=== PATIENT | male | born 1990 | race Caucasian/White ===

== ENCOUNTER 2019-09-26 12:51 | Outpatient (CLI) | payer OTHER ==
[2019-09-26 13:46] LABS: CLARITY,URINE CLEAR (Clear); COLOR,URINE YELLOW (Yellow); GLUCOSE, URINE NEGATIVE (Neg); KETONES,URINE NEGATIVE (Neg); LEUKOCYTE ESTERASE ,URINE NEGATIVE (Neg); NITRITES, URINE NEGATIVE (Neg); OCCULT BLOOD,URINE NEGATIVE (Neg); PROTEIN,URINE NEGATIVE (Neg); UROBILINOGEN,URINE 0.2 E.U/dL (0.2-1.0)
[2019-09-26 13:52] LABS: UA COLLECTION TYPE CLN CATCH MIDSTREAM
== END 2019-09-26 23:59 | disposition home or self-care (01) ==
LOC: LAB 12:51
PROVIDERS: ATTEND Family Medicine
DX: Z11.3 Encounter for screening for infections with a predominantly sexual mode of transmission (principal)
CPT/HCPCS: 36415; 81003; 87491

== ENCOUNTER 2019-11-14 12:35 | Outpatient (CLI) | payer OTHER ==
[2019-11-14 13:16] LABS: ALANINE AMINOTRANSFERASE 72 U/L (12-78); ALBUMIN 4.3 G/DL (3.4-5.0); ALKALINE PHOSPHATASE 116 IU/L (46-116); ANION GAP 8 (8-16); ASPARTATE AMINO TRANSFERASE 26 U/L (10-37); BILIRUBIN,TOTAL 0.4 MG/DL (0.1-1.0); BLOOD UREA NITROGEN 14 MG/DL (7-18); BUN/CREATININE RATIO 12.4 (5.4-32.0); CHLORIDE 103 MMOL/L (99-107); CREATININE 1.13 MG/DL (0.60-1.10); GLUCOSE 105 MG/DL (70-104); SODIUM 139 MMOL/L (135-145); TOTAL CARBON DIOXIDE 28.1 MMOL/L (24-32); TOTAL PROTEIN 8.8 G/DL (6.4-8.2); eGFR 77 ML/MIN
[2019-11-14 13:18] LABS: BASOPHILS # (AUTO) 0.1 X10'3 (0-0.2); BASOPHILS % (AUTO) 0.8 % (0-1); EOSINOPHILS # (AUTO) 0.2 X10'3 (0-0.9); EOSINOPHILS % (AUTO) 1.2 % (0-6); HEMATOCRIT 46.2 % (42.0-52.0); HEMOGLOBIN 15.6 g/dl (14.0-17.9); LYMPHOCYTES % (AUTO) 11.9 % (21-51); MEAN CORPUSCULAR HEMOGLOBIN 29.8 PG (27.0-31.0); MEAN CORPUSCULAR HGB CONC 33.8 g/dL (33.0-36.5); MEAN CORPUSCULAR VOLUME 88.2 FL (78-98); MEAN PLATELET VOLUME 8.3 FL (7.4-10.4); MONOCYTES % (AUTO) 6.3 % (2-12); NEUTROPHILS # (AUTO) 13.3 X10'3 (1.8-7.7); NEUTROPHILS % (AUTO) 79.8 % (42-75); PLATELET COUNT 410 X10'3 (140-440); RED BLOOD COUNT 5.24 X10'6 (4.70-6.10); RED CELL DISTRIBUTION WIDTH 13.2 % (11.5-14.5); WHITE BLOOD COUNT 16.6 X10'3 (4.5-11.0)
== END 2019-11-14 23:59 | disposition home or self-care (01) ==
LOC: LAB 12:35
PROVIDERS: ATTEND Family Medicine
DX: R19.7 Diarrhea, unspecified (principal)
CPT/HCPCS: 36415; 80053; 85025; 87045; 87046; 89055

== ENCOUNTER 2019-11-23 13:19 | Outpatient (CLI) | payer OTHER ==
[2019-11-23 13:37] LABS: EOSINOPHILS # (AUTO) 0.3 X10'3 (0-0.9); HEMOGLOBIN 14.1 g/dl (14.0-17.9); LYMPHOCYTES # (AUTO) 1.6 X10'3 (1.1-4.8); MEAN PLATELET VOLUME 7.8 FL (7.4-10.4); MONOCYTES # (AUTO) 0.7 X10'3 (0-0.9)
[2019-11-23 13:39] LABS: BASOPHILS # (AUTO) 0.1 X10'3 (0-0.2); BASOPHILS % (AUTO) 1.6 % (0-1); EOSINOPHILS % (AUTO) 3.4 % (0-6); HEMATOCRIT 40.6 % (42.0-52.0); LYMPHOCYTES % (AUTO) 21.4 % (21-51); MEAN CORPUSCULAR HEMOGLOBIN 30.1 PG (27.0-31.0); MEAN CORPUSCULAR HGB CONC 34.8 g/dL (33.0-36.5); MEAN CORPUSCULAR VOLUME 86.3 FL (78-98); MONOCYTES % (AUTO) 9.5 % (2-12); NEUTROPHILS # (AUTO) 4.8 X10'3 (1.8-7.7); NEUTROPHILS % (AUTO) 64.1 % (42-75); PLATELET COUNT 358 X10'3 (140-440); RED CELL DISTRIBUTION WIDTH 13.1 % (11.5-14.5); WHITE BLOOD COUNT 7.5 X10'3 (4.5-11.0)
[2019-11-23 13:53] LABS: ALANINE AMINOTRANSFERASE 51 U/L (12-78); ALBUMIN 3.7 G/DL (3.4-5.0); ALKALINE PHOSPHATASE 87 IU/L (46-116); ANION GAP 6 (8-16); ASPARTATE AMINO TRANSFERASE 27 U/L (10-37); BILIRUBIN,TOTAL 0.2 MG/DL (0.1-1.0); BLOOD UREA NITROGEN 10 MG/DL (7-18); BUN/CREATININE RATIO 9.3 (5.4-32.0); CALCIUM 8.6 MG/DL (8.5-10.1); CHLORIDE 108 MMOL/L (99-107); CREATININE 1.08 MG/DL (0.60-1.10); GLUCOSE 98 MG/DL (70-104); POTASSIUM 4.1 MMOL/L (3.5-5.1); SODIUM 143 MMOL/L (135-145); TOTAL CARBON DIOXIDE 28.7 MMOL/L (24-32); TOTAL PROTEIN 7.4 G/DL (6.4-8.2); eGFR 81 ML/MIN
== END 2019-11-23 23:59 | disposition home or self-care (01) ==
LOC: LAB 13:19
PROVIDERS: ATTEND Family Medicine
DX: A07.1 Giardiasis [lambliasis] (principal)
CPT/HCPCS: 36415; 80053; 85025

== ENCOUNTER 2019-12-04 10:20 | Outpatient (CLI) | payer OTHER ==
[2019-12-04 11:15] LABS: ALANINE AMINOTRANSFERASE 114 U/L (12-78); ALBUMIN 3.9 G/DL (3.4-5.0); ALKALINE PHOSPHATASE 79 IU/L (46-116); ANION GAP 9 (8-16); ASPARTATE AMINO TRANSFERASE 47 U/L (10-37); BILIRUBIN,TOTAL 0.3 MG/DL (0.1-1.0); BLOOD UREA NITROGEN 16 MG/DL (7-18); BUN/CREATININE RATIO 16.3 (5.4-32.0); CALCIUM 8.7 MG/DL (8.5-10.1); CHLORIDE 103 MMOL/L (99-107); CREATININE 0.98 MG/DL (0.60-1.10); GLUCOSE 106 MG/DL (70-104); POTASSIUM 4.1 MMOL/L (3.5-5.1); SODIUM 139 MMOL/L (135-145); TOTAL CARBON DIOXIDE 27.4 MMOL/L (24-32); TOTAL PROTEIN 7.7 G/DL (6.4-8.2); eGFR > 90 ML/MIN
[2019-12-04 11:43] LABS: BASOPHILS # (AUTO) 0.2 X10'3 (0-0.2); BASOPHILS % (AUTO) 2.4 % (0-1); EOSINOPHILS # (AUTO) 0.2 X10'3 (0-0.9); EOSINOPHILS % (AUTO) 3.1 % (0-6); HEMATOCRIT 42.4 % (42.0-52.0); HEMOGLOBIN 14.4 g/dl (14.0-17.9); LYMPHOCYTES # (AUTO) 2.1 X10'3 (1.1-4.8); LYMPHOCYTES % (AUTO) 26.5 % (21-51); MEAN CORPUSCULAR HEMOGLOBIN 29.9 PG (27.0-31.0); MEAN CORPUSCULAR HGB CONC 33.9 g/dL (33.0-36.5); MEAN CORPUSCULAR VOLUME 88.1 FL (78-98); MEAN PLATELET VOLUME 8.1 FL (7.4-10.4); MONOCYTES # (AUTO) 0.7 X10'3 (0-0.9); MONOCYTES % (AUTO) 8.4 % (2-12); NEUTROPHILS # (AUTO) 4.7 X10'3 (1.8-7.7); NEUTROPHILS % (AUTO) 59.6 % (42-75); PLATELET COUNT 383 X10'3 (140-440); RED BLOOD COUNT 4.81 X10'6 (4.70-6.10); RED CELL DISTRIBUTION WIDTH 13.1 % (11.5-14.5); WHITE BLOOD COUNT 7.9 X10'3 (4.5-11.0)
== END 2019-12-04 23:59 | disposition home or self-care (01) ==
LOC: LAB 10:20
PROVIDERS: ATTEND Family Medicine
DX: A07.1 Giardiasis [lambliasis] (principal)
CPT/HCPCS: 36415; 80053; 85025

== ENCOUNTER 2020-01-07 13:05 | Outpatient (CLI) | payer OTHER ==
[2020-01-07 13:45] LABS: ALANINE AMINOTRANSFERASE 33 U/L (12-78); ALBUMIN 3.9 G/DL (3.4-5.0); ALKALINE PHOSPHATASE 103 IU/L (46-116); ANION GAP 5 (8-16); ASPARTATE AMINO TRANSFERASE 17 U/L (10-37); BILIRUBIN,TOTAL 0.2 MG/DL (0.1-1.0); BLOOD UREA NITROGEN 17 MG/DL (7-18); BUN/CREATININE RATIO 16.8 (5.4-32.0); CHLORIDE 106 MMOL/L (99-107); CREATININE 1.01 MG/DL (0.60-1.10); GLUCOSE 97 MG/DL (70-104); POTASSIUM 4.3 MMOL/L (3.5-5.1); SODIUM 139 MMOL/L (135-145); TOTAL CARBON DIOXIDE 27.8 MMOL/L (24-32); TOTAL PROTEIN 7.9 G/DL (6.4-8.2); eGFR 88 ML/MIN
== END 2020-01-07 23:59 | disposition home or self-care (01) ==
LOC: LAB 13:05
PROVIDERS: ATTEND Family Medicine
DX: R19.7 Diarrhea, unspecified (principal)
CPT/HCPCS: 36415; 80053

== ENCOUNTER 2020-12-19 23:58 | Emergency (ER) | payer OTHER ==
[~2020-12-19] VITALS: Ht 182.9 cm; Wt 104.0 kg
[2020-12-20 00:11] VITALS: BP 164/104
== END 2020-12-20 01:25 | disposition home or self-care (01) ==
LOC: ER 23:58
DX: Z77.21 Contact with and (suspected) exposure to potentially hazardous body fluids (principal); I10 Essential (primary) hypertension; F17.200 Nicotine dependence, unspecified, uncomplicated
CPT/HCPCS: 99281

== ENCOUNTER 2021-04-20 11:46 | Outpatient (CLI) | payer BC ==
[2021-04-20 12:31] LABS: BASOPHILS # (AUTO) 0.2 X10'3 (0-0.2); BASOPHILS % (AUTO) 1.9 % (0-1); EOSINOPHILS # (AUTO) 0.1 X10'3 (0-0.9); EOSINOPHILS % (AUTO) 1.8 % (0-6); HEMATOCRIT 41.7 % (42.0-52.0); HEMOGLOBIN 13.9 g/dl (14.0-17.9); LYMPHOCYTES # (AUTO) 2.5 X10'3 (1.1-4.8); LYMPHOCYTES % (AUTO) 31.6 % (21-51); MEAN CORPUSCULAR HEMOGLOBIN 29.3 PG (27.0-31.0); MEAN CORPUSCULAR HGB CONC 33.4 g/dL (33.0-36.5); MEAN CORPUSCULAR VOLUME 87.9 FL (78-98); MEAN PLATELET VOLUME 8.5 FL (7.4-10.4); MONOCYTES # (AUTO) 0.7 X10'3 (0-0.9); MONOCYTES % (AUTO) 8.1 % (2-12); NEUTROPHILS # (AUTO) 4.5 X10'3 (1.8-7.7); NEUTROPHILS % (AUTO) 56.6 % (42-75); PLATELET COUNT 334 X10'3 (140-440); RED BLOOD COUNT 4.74 X10'6 (4.70-6.10); RED CELL DISTRIBUTION WIDTH 13.5 % (11.5-14.5)
[2021-04-20 12:35] LABS: CLARITY,URINE CLEAR (Clear); COLOR,URINE YELLOW (Yellow); GLUCOSE, URINE NEGATIVE (Neg); KETONES,URINE NEGATIVE (Neg); LEUKOCYTE ESTERASE ,URINE NEGATIVE (Neg); NITRITES, URINE NEGATIVE (Neg); OCCULT BLOOD,URINE NEGATIVE (Neg); PH,URINE 5.5 (4.8-8.0); PROTEIN,URINE NEGATIVE (Neg); UROBILINOGEN,URINE 0.2 E.U/dL (0.2-1.0)
[2021-04-20 12:45] LABS: UA COLLECTION TYPE VOIDED
[2021-04-20 13:00] LABS: ALANINE AMINOTRANSFERASE 39 U/L (12-78); ALBUMIN 4.1 G/DL (3.4-5.0); ALBUMIN/GLOBULIN RATIO 1.1 (1.1-1.5); ALKALINE PHOSPHATASE 94 IU/L (46-116); ANION GAP 11 (8-16); ASPARTATE AMINO TRANSFERASE 18 U/L (10-37); BILIRUBIN,TOTAL 0.3 MG/DL (0.1-1.0); BLOOD UREA NITROGEN 19 MG/DL (7-18); BUN/CREATININE RATIO 19.2 (5.4-32.0); CHLORIDE 106 MMOL/L (99-107); CHOLESTEROL 164 MG/DL (0-200); CREATININE 0.99 MG/DL (0.60-1.10); GLUCOSE 98 MG/DL (70-104); HDL CHOLESTEROL 33 MG/DL (35-60); LDL CHOLESTEROL 109 MG/DL (50-100); POTASSIUM 4.2 MMOL/L (3.5-5.1); SODIUM 141 MMOL/L (135-145); TOTAL CARBON DIOXIDE 23.8 MMOL/L (24-32); TOTAL PROTEIN 7.9 G/DL (6.4-8.2); TRIGLYCERIDES 128 MG/DL (20-135); eGFR 89 ML/MIN
== END 2021-04-20 23:59 | disposition home or self-care (01) ==
LOC: LAB 11:46
PROVIDERS: ATTEND Family Medicine
DX: Z00.01 Encounter for general adult medical examination with abnormal findings (principal)
CPT/HCPCS: 36415; 80053; 80061; 81003; 84439; 84443; 85025

== ENCOUNTER 2021-04-21 11:47 | Emergency (ER) | payer BC, OTHER ==
[~2021-04-21] VITALS: Ht 182.9 cm; Wt 109.1 kg
[2021-04-21 12:01] VITALS: BP 144/97
== END 2021-04-21 13:55 | disposition home or self-care (01) ==
LOC: ER 11:47
DX: M25.511 Pain in right shoulder (principal); R07.81 Pleurodynia; M79.604 Pain in right leg; I10 Essential (primary) hypertension; V89.2XXA Person injured in unspecified motor-vehicle accident, traffic, initial encounter; Y93.89 Activity, other specified; Y92.89 Other specified places as the place of occurrence of the external cause; Y99.8 Other external cause status
CPT/HCPCS: 99282

== ENCOUNTER 2021-09-17 13:35 | Outpatient (CLI) | payer BC | END 2021-09-17 23:59 | disposition home or self-care (01) | LOC: LAB 13:35 | PROVIDERS: ATTEND Family Medicine | DX: R76.11 Nonspecific reaction to tuberculin skin test without active tuberculosis (principal) | CPT/HCPCS: 71046 ==

== ENCOUNTER 2022-02-14 06:46 | Emergency (ER) | payer BC, OTHER ==
[~2022-02-14] VITALS: Ht 182.9 cm; Wt 106.8 kg
[2022-02-14 06:52] VITALS: BP 152/112
== END 2022-02-14 08:18 | disposition home or self-care (01) ==
LOC: ER 06:47
DX: Z77.21 Contact with and (suspected) exposure to potentially hazardous body fluids (principal); I10 Essential (primary) hypertension
CPT/HCPCS: 36415; 99283

== ENCOUNTER 2023-05-04 12:53 | Outpatient (CLI) | payer BC ==
[2023-05-04 13:41] LABS: BASOPHILS # (AUTO) 0.1 X10'3 (0-0.2); BASOPHILS % (AUTO) 1.4 % (0-1); EOSINOPHILS # (AUTO) 0.1 X10'3 (0-0.9); EOSINOPHILS % (AUTO) 1.9 % (0-6); HEMATOCRIT 42.6 % (42.0-52.0); HEMOGLOBIN 14.9 g/dl (14.0-17.9); LYMPHOCYTES # (AUTO) 2.2 X10'3 (1.1-4.8); LYMPHOCYTES % (AUTO) 30.3 % (21-51); MEAN CORPUSCULAR HEMOGLOBIN 30.7 PG (27.0-31.0); MEAN CORPUSCULAR VOLUME 87.6 FL (78-98); MEAN PLATELET VOLUME 8.4 FL (7.4-10.4); MONOCYTES # (AUTO) 0.6 X10'3 (0-0.9); MONOCYTES % (AUTO) 8.4 % (2-12); NEUTROPHILS # (AUTO) 4.2 X10'3 (1.8-7.7); PLATELET COUNT 297 X10'3 (140-440); RED BLOOD COUNT 4.86 X10'6 (4.70-6.10); RED CELL DISTRIBUTION WIDTH 12.4 % (11.5-14.5); WHITE BLOOD COUNT 7.2 X10'3 (4.5-11.0)
[2023-05-04 14:00] LABS: BILIRUBIN,URINE NEGATIVE (Neg); CLARITY,URINE CLEAR (Clear); COLOR,URINE YELLOW (Yellow); GLUCOSE, URINE NEGATIVE (Neg); KETONES,URINE NEGATIVE (Neg); LEUKOCYTE ESTERASE ,URINE NEGATIVE (Neg); NITRITES, URINE NEGATIVE (Neg); OCCULT BLOOD,URINE NEGATIVE (Neg); PH,URINE 5.5 (4.8-8.0); PROTEIN,URINE TRACE mg/dl (Neg); UROBILINOGEN,URINE 0.2 E.U/dL (0.2-1.0)
[2023-05-04 14:01] LABS: UA COLLECTION TYPE CLN CATCH MIDSTREAM
[2023-05-04 14:14] LABS: ALANINE AMINOTRANSFERASE 38 U/L (12-78); ALBUMIN 4.1 G/DL (3.4-5.0); ALKALINE PHOSPHATASE 93 IU/L (46-116); ANION GAP 13 (8-16); ASPARTATE AMINO TRANSFERASE 21 U/L (10-37); BILIRUBIN,TOTAL 0.3 MG/DL (0.1-1.0); BLOOD UREA NITROGEN 14 MG/DL (7-18); BUN/CREATININE RATIO 13.5 (10.0-20.0); CALCIUM 9.1 MG/DL (8.5-10.1); CHLORIDE 103 MMOL/L (99-107); CHOL/HDL RATIO 4.7 (0.00-4.99); CHOLESTEROL 159 MG/DL (0-200); CREATININE 1.04 MG/DL (0.60-1.10); FREE T4 (FREE THYROXINE) 0.89 NG/DL (0.73-1.40); GLUCOSE 111 MG/DL (70-104); HDL CHOLESTEROL 34 MG/DL (35-60); LDL CHOLESTEROL 102 MG/DL (50-100); POTASSIUM 3.8 MMOL/L (3.5-5.1); SODIUM 140 MMOL/L (135-145); THYROID STIMULATING HORMONE 2.01 ulU/ml (0.34-4.50); TOTAL CARBON DIOXIDE 24.2 MMOL/L (24-32); TOTAL PROTEIN 8.2 G/DL (6.4-8.2); TRIGLYCERIDES 101 MG/DL (20-135); URIC ACID 6.8 MG/DL (3.5-7.2); eGFR 83 ML/MIN
[2023-05-04 14:17] LABS: RHEUM FACTOR QUAL REFLEX TITER NEGATIVE (Neg)
[2023-05-04 14:20] LABS: BACTERIA,URINE FEW /HPF (Neg); MUCUS STRANDS MANY /LPF (Neg); RBC,URINE NONE SEEN /HPF (0-2); SQUAMOUS EPITHELIAL CELL,UR FEW /LPF (FEW)
[2023-05-04 14:21] LABS: CAL OXALATE CRYSTALS 1+ /HPF (NEGATIVE); HYALINE CASTS 0-3 /LPF (NEGATIVE)
== END 2023-05-04 23:59 | disposition home or self-care (01) ==
LOC: LAB 12:53
PROVIDERS: ATTEND Family Medicine
DX: K65.4 Sclerosing mesenteritis (principal); R10.13 Epigastric pain; I10 Essential (primary) hypertension
CPT/HCPCS: 36415; 80053; 80061; 81001; 84439; 84443; 84550; 85025; 85651; 86038; 86430

== ENCOUNTER 2023-06-08 00:45 | Emergency (ER) | payer OTHER ==
[~2023-06-08] VITALS: Ht 175.3 cm; Wt 102.3 kg
[~2023-06-08 00:45] MED LIST: IBUP-1986 PO
[2023-06-08 00:53] VITALS: BP 146/106; PULSE 101; RESP 20; TEMP 97.9; O2SAT 98
[2023-06-08] MEDS ORDERED: HYDROcodone/acetaminophen 5mg/325mg tablet PO ONE (03:00)
[2023-06-08] MEDS ORDERED: orphenadrine citrate 60mg/2ml inj. IM ONE (03:00)
[2023-06-08] MEDS ORDERED: ondansetron 4mg rapidly disintigrating tab PO ONE (03:00)
[2023-06-08] MEDS ORDERED: PRED20TA PO (03:03)
[2023-06-08] MEDS ORDERED: HYDR-3965 PO (03:03)
== END 2023-06-08 03:17 | disposition home or self-care (01) ==
LOC: ER 00:46 → MERGE 00:46 → ER 03:17
DX: M54.59 Other low back pain (principal); Z88.1 Allergy status to other antibiotic agents
CPT/HCPCS: 96372; 99283; J2360

== ENCOUNTER 2023-06-10 09:16 | Emergency (ER) | payer BC, OTHER ==
[~2023-06-10] VITALS: Ht 180.3 cm; Wt 102.7 kg
[~2023-06-10 09:16] MED LIST changes: +HYDR-3965 PO; +PRED20TA PO
[2023-06-10 09:40] VITALS: BP 147/109; PULSE 85; RESP 18; TEMP 98.2; O2SAT 98
[2023-06-10] MEDS ORDERED: HYDROcodone/acetaminophen 10/325mg tab PO ONE (10:55)
[2023-06-10] MEDS ORDERED: GABA-530 PO (10:56)
--- NOTE | 2023-06-10 11:55 | NUR ---
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
== END 2023-06-10 11:14 | disposition home or self-care (01) ==
LOC: ER 09:17
DX: M54.42 Lumbago with sciatica, left side (principal); G89.29 Other chronic pain; M54.9 Dorsalgia, unspecified; I10 Essential (primary) hypertension; Z88.1 Allergy status to other antibiotic agents; Z79.899 Other long term (current) drug therapy
CPT/HCPCS: 99284

== ENCOUNTER 2023-07-06 08:18 | Day surgery (SDC) | payer BC ==
[~2023-07-06] VITALS: Ht 177.8 cm; Wt 103.0 kg
[~2023-07-06 08:18] MED LIST changes: +GABA-530 PO; -PRED20TA PO
[2023-07-06] MEDS ORDERED: LOSA-415 PO (09:25)
[2023-07-06] MEDS ORDERED: DICL1PAT13 TOP (09:25)
[2023-07-06] MEDS ORDERED: FAMO-128 PO (09:25)
[2023-07-06] MEDS ORDERED: ZOLP5TAB8 PO (09:25)
[2023-07-06 09:30] VITALS: BP 129/80; PULSE 78; RESP 28
[2023-07-06] MEDS ORDERED: GABA-530 PO (09:47)
[2023-07-06] MEDS ORDERED: MIDAZolam 1 MG/ML 5ML VIAL ONE (10:27)
[2023-07-06] MEDS ORDERED: fentaNYL/PF 50MCG/1 ML 2ML syringe ONE (10:27)
[2023-07-06 11:16] VITALS: BP 103/64; PULSE 60; RESP 29; O2SAT 99
[2023-07-06 11:26] VITALS: BP 103/69; PULSE 53; RESP 24; O2SAT 98
[2023-07-06 11:36] VITALS: BP 102/59; PULSE 51; RESP 29; O2SAT 97
[2023-07-06 11:46] VITALS: BP 115/74; PULSE 61; RESP 16; O2SAT 99
== END 2023-07-06 11:50 | disposition home or self-care (01) ==
LOC: GI LAB 08:18
PROVIDERS: ATTEND Specialist
DX: K57.32 Diverticulitis of large intestine without perforation or abscess without bleeding (principal); K63.5 Polyp of colon; K64.8 Other hemorrhoids; K63.89 Other specified diseases of intestine; J45.909 Unspecified asthma, uncomplicated; I10 Essential (primary) hypertension; Z79.899 Other long term (current) drug therapy; Z98.890 Other specified postprocedural states; Z88.1 Allergy status to other antibiotic agents
CPT/HCPCS: 45380; 45385; 99152; C1889; J2250; J3010; J7030; Z7512; 99153; A4620

== ENCOUNTER 2023-08-27 22:27 | Emergency (ER) | payer BC, OTHER ==
[~2023-08-27] VITALS: Ht 177.8 cm; Wt 106.8 kg
[~2023-08-27 22:27] MED LIST changes: +DICL1PAT13 TOP; +FAMO-128 PO; -HYDR-3965 PO; -IBUP-1986 PO; +LOSA-415 PO; +ZOLP5TAB8 PO
[2023-08-27] MEDS ORDERED: ketorolac trometh inj. 60 MG/2 ML VIAL IM ONE (23:20)
[2023-08-27] MEDS ORDERED: TETanus/Pertussis (Acell)/Diphther VAC/PF (Tdap-Adult) 0.5ml syringe IMVAC ONE (23:20)
[2023-08-27] MEDS ORDERED: mupirocin 2% ointment 22GM TP ONE (23:20)
[2023-08-28 01:25] VITALS: BP 138/98; PULSE 90; RESP 16; TEMP 98; O2SAT 98
[2023-08-28 01:55] LABS: HIV ANTIBODY 1&2 RAPID NON-REACTIVE (Neg)
== END 2023-08-28 01:32 | disposition home or self-care (01) ==
LOC: ER 22:28
DX: S39.012A Strain of muscle, fascia and tendon of lower back, initial encounter (principal); S29.012A Strain of muscle and tendon of back wall of thorax, initial encounter; S00.81XA Abrasion of other part of head, initial encounter; I10 Essential (primary) hypertension; G89.29 Other chronic pain; Z77.21 Contact with and (suspected) exposure to potentially hazardous body fluids; Z79.899 Other long term (current) drug therapy; Z88.1 Allergy status to other antibiotic agents; Y04.2XXA Assault by strike against or bumped into by another person, initial encounter; Y93.89 Activity, other specified; Y92.89 Other specified places as the place of occurrence of the external cause; Y99.8 Other external cause status
CPT/HCPCS: 36415; 72128; 72131; 86703; 86704; 86705; 90471; 90715; 96372; 99285; J1885

== ENCOUNTER 2024-01-24 12:44 | Outpatient (CLI) | payer BC | END 2024-01-24 23:59 | disposition home or self-care (01) | LOC: LAB 12:44 | PROVIDERS: ATTEND Family Medicine | DX: R73.03 Prediabetes (principal) | CPT/HCPCS: 36415; 83036 ==

== ENCOUNTER 2024-03-20 09:58 | Emergency (ER) | payer BC, OTHER ==
[~2024-03-20] VITALS: Ht 182.9 cm; Wt 112.7 kg
[2024-03-20 10:09] VITALS: TEMP 97.2
[2024-03-20] MEDS: ibuprofen tablet 400 MG TABLET PO ONE (10:55)
[2024-03-20 11:35] VITALS: BP 145/104; PULSE 115; RESP 18; O2SAT 96
== END 2024-03-20 11:42 | disposition home or self-care (01) ==
LOC: ER 09:59
DX: S00.83XA Contusion of other part of head, initial encounter (principal); I10 Essential (primary) hypertension; G89.29 Other chronic pain; M54.9 Dorsalgia, unspecified; Z88.1 Allergy status to other antibiotic agents; Z79.899 Other long term (current) drug therapy; Y09 Assault by unspecified means; Y93.89 Activity, other specified; Y92.89 Other specified places as the place of occurrence of the external cause; Y99.8 Other external cause status
CPT/HCPCS: 99282

== ENCOUNTER 2025-02-20 14:19 | Outpatient (CLI) | payer BC ==
--- NOTE | 2025-02-22 06:45 | RADIOLOGY REPORT ---
CLINICAL INDICATION: LUMBAGO WITH SCIATICA,PAIN L HIP COMPARISON: None TECHNIQUE: Multiplanar, multi-sequence MRI of the left hip was performed without intravenous contrast. The contralateral hip is included on several of the sequences. Contrast: None INTERPRETATION: Joint space: The joint space is maintained. Physiologic amount of fluid in the left hip joint (trac e). No synovitis. The large [id number] images include the right hip joint which appears to be dwain ssly unremarkable. Bones and articular cartilage: There is no fracture, bone marrow edema or avascular necrosis. The al ignment is normal. There is no focal articular cartilage defect. Tendons, muscles and bursae: There is no tendon abnormality. Muscles are normal in bulk and signal c haracteristics. There is no evidence of bursitis. Acetabular labrum: No labral tear is identified. IMPRESSION: 1. No evidence of bone or soft tissue injury in the left hip.
--- NOTE | 2025-02-22 06:48 | RADIOLOGY REPORT ---
PROCEDURE: MRI lumbar spine without contrast. INDICATION: LUMBAGO WITH SCIATICA,PAIN L HIP COMPARISON: None TECHNIQUE: MRI lumbar spine without intravenous contrast utilizing multiplanar, multisequence techni que. FINDINGS: The alignment of the lumbar spine vertebral bodies is preserved. Modic type 1 endplate changes at L4- L5. Marrow signal is otherwise unremarkable. The vertebral body heights are maintained. The interver tebral disc spaces are maintained in height and signal characteristics. The conus medullaris is elizabeth l in signal characteristics and terminates at the T12-L1 level. Paraspinal muscles are unremarkable. At the T12-L1 level, there is no evidence of central spinal canal or neuroforaminal stenosis. At the L1-L2 level, there is no evidence of central spinal canal or neuroforaminal stenosis. At the L2-L3 level, there is no evidence of central spinal canal or neuroforaminal stenosis. At the L3-L4 level, there is no evidence of central spinal canal or neuroforaminal stenosis. At the L4-L5 level, there is broad-based posterior disc bulge without significant spinal canal or paty roforaminal stenosis. At the L5-S1 level, there is no evidence of central spinal canal or neuroforaminal stenosis. Other: None. IMPRESSION: 1. Mild intervertebral disc degeneration at L5-S1 with broad-based posterior disc bulge but no signif icant spinal or neural foraminal stenosis in the lumbar spine.
== END 2025-02-20 23:59 | disposition home or self-care (01) ==
LOC: MRI02 14:19
PROVIDERS: ATTEND Nurse Practitioner Family
DX: M51.17 Intervertebral disc disorders with radiculopathy, lumbosacral region (principal); M25.552 Pain in left hip
CPT/HCPCS: 72148; 73721

== ENCOUNTER 2025-08-17 22:58 | Emergency (ER) | payer BC ==
[~2025-08-17] VITALS: Ht 182.9 cm; Wt 110.7 kg
[~2025-08-17 22:58] MED LIST changes: +ZOLP5TAB19 PO; -ZOLP5TAB8 PO
[2025-08-17 23:07] VITALS: TEMP 98.6
--- NOTE | 2025-08-17 23:12 | ELECTROCARDIOGRAPH REPORT ---
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
[2025-08-17 23:33] LABS: MEAN PLATELET VOLUME 8.2 FL (7.4-10.4); RED CELL DISTRIBUTION WIDTH 13.5 % (11.5-14.5)
[2025-08-17 23:52] LABS: CREATININE 1.05 MG/DL (0.60-1.10); TOTAL CARBON DIOXIDE 27.2 MMOL/L (24-32); eCRCL 109 ML/MIN; eGFR 81 ML/MIN
[2025-08-17 23:55] LABS: PRO BRAIN NATRIURETIC PEPTIDE < 30 PG/ML (0-125)
--- NOTE | 2025-08-18 00:45 | Physician Documentation ---
History of Present Illness ~ Chief Complaint: Rapid Heartbeat Stated Complaint: HIGH HEART RATE Time Seen by MD: 23:22 Primary Medical Doctor: Dr. Kelley HPI 35 year old male was working tonight and experienced palpitations and a high heart rate into the 140's. He has had this happen before and has been worked up by a protozoologist with no definitive diagnosis. Denies chest pain, fevers, N/V/D, shortness of breath. Medication Reconciliation Allergies: Coded Allergies: amoxicillin (Unverified Allergy, Unknown, 03/20/24) HAS NOT HAD SINCE CHILDHOOD Scheduled Diclofenac Epolamine (Flector), 1 PATCH TOP DAILY, (Reported) Famotidine (Pepcid), 1 TAB PO Q12H, (Reported) Gabapentin (Gabapentin), 1 CAP PO Q8H, (Reported) Losartan Potassium* (Cozaar*), 0.5 TAB PO DAILY, (Reported) Scheduled PRN Zolpidem Tartrate* (Ambien*), 2 TAB PO HS PRN for INSOMNIA, (Reported) Past Medical History Past Medical History: Hypertension, Chronic Back Pain Past Surgical History: noncontributory Alcohol Use: None Drug Use: none Lives In: Home Occupation: employed Review of Systems All Other Systems at this time: Reviewed and Negative Physical Exam Vital Signs: RN Vital Signs have been reviewed: Yes, Temperature: 98.6, Source: Temporal, Heart Rate: 104, Respiratory Rate: 14, BP: 129/96, Pulse Oximetry: 97, Weight: 110.700 Physical Exam Gen: no distress HEENT: EOMI, PERRL Pulm: no distress, CTAB Cardiac: regular tachycardia, no m/c/r Abdomen: deferred MSK: no deformity Skin: w/d/i Neuro: nonfocal Psych: unremarkable Progress Results/Orders Results/Orders Orders - ARMANDO SOLO MD Chest,Single View (08/17/25 23:10) Monitor (08/17/25 23:10) Saline Lock (08/17/25 23:10) Oxygen (08/17/25 23:10) Hs Troponin I W Calculations (08/18/25 01:10) Hs Troponin I W Calculations (08/18/25 02:10) Completed Orders - ARMANDO SOLO MD Chest,Single View (08/17/25 23:10) Cbc/Diff (08/17/25 23:10) BMP (08/17/25 23:10) PBNP (08/17/25 23:10) Electrocardiogram (08/17/25 23:10) Hs Troponin I W Calculations (08/17/25 23:10) Vital Signs 08/17/25 08/17/25 23:07 23:20 Temp 98.6 Pulse 104 Resp 16 14 B/P (MAP) 129/96 Pulse Ox 97 Laboratory Tests Test 08/17/25 23:23 White Blood Count 10.4 Red Blood Count 4.83 Hemoglobin 14.4 Hematocrit 41.6 L Mean Corpuscular Volume 86.2 Mean Corpuscular Hemoglobin 29.7 Mean Corpuscular Hemoglobin Concent 34.5 Red Cell Distribution Width 13.5 Platelet Count 343 Mean Platelet Volume 8.2 Neutrophils (%) (Auto) 66.2 Lymphocytes (%) (Auto) 25.2 Monocytes (%) (Auto) 6.6 Eosinophils (%) (Auto) 0.8 Basophils (%) (Auto) 1.2 H Neutrophils # (Auto) 6.9 Lymphocytes # (Auto) 2.6 Monocytes # (Auto) 0.7 Eosinophils # (Auto) 0.1 Basophils # (Auto) 0.1 CBC Comment Sodium Level 139 Potassium Level 3.6 Chloride Level 103 Carbon Dioxide Level 27.2 Anion Gap 9 Blood Urea Nitrogen 10 Creatinine 1.05 Estimated GFR/1.73 m2 81 BUN/Creatinine Ratio 9.5 L Glucose Level 97 Calcium Level 8.8 Troponin I High Sensitivity 5 Pro-B-Type Natriuretic Peptide < 30 Albumin 4.2 Chemistry Comments EKG/XRAY/CT/US/VASC/MRI EKG : Indication: other EKG Rate: 104 EKG: sinus tach EKG Blocks: none Additional Comment my interpretation: sinus tachycardia, no STEMI criteria, no evidence of WPW, long QT, HOCM, brugada's. Chest X-Ray : Interpreted By: self Views: 1 VIEW Lungs: normal Mediastinum: normal Ribs/Bones: normal Abdomen: normal Impression: no acute disease Medical Decision Making Additional information obtaine: N/A Findings 35 year old male with benign exam and sinus tachycardia. Workup entirely negative. Observed on telemonitor, no evidence of dysrhythmia. Counseled return precautions. Differential Dx:Considerations: Include: angina / UT, atrial fibrillation, atrial flutter, MAT, PACs, PSVT, sinus tachycardia, WPW, PVCs, ventricular tachycardia Differential Dx:Considerations: Include anxiety/panic attack, Include electrolyte disorder, Include pulmonary embolus Departure Disposition: 01 HOME / SELF CARE / HOMELESS Impression: Primary Impression: Palpitations Condition: Stable Discharge Instructions: Palpitations Referrals: NO PRIMARY CARE PROVIDER (PCP) Education Educated: Patient Educated regarding: diagnosis, treatment, prognosis, need for follow up Signature Scribe Signature: . Attestation: . ARMANDO SOLO MD Aug 18, 2025 00:45
[2025-08-18 01:03] VITALS: BP 128/92; PULSE 82; RESP 16; O2SAT 97
--- NOTE | 2025-08-18 06:05 | RADIOLOGY REPORT ---
CHEST RADIOGRAPH INDICATION: CP TECHNIQUE: Single frontal view of the chest was obtained COMPARISON: CHEST,TWO VIEWS on DOS: 09/17/21 FINDINGS: Lines and Tubes: None Lungs: No focal consolidation. Pleura: No effusion. No pneumothorax. Cardiomediastinal contours: Unremarkable Bones: No acute osseous abnormality. IMPRESSION: No acute cardiopulmonary disease.
== END 2025-08-18 01:01 | disposition home or self-care (01) ==
LOC: ER 22:59
DX: R00.2 Palpitations (principal); I10 Essential (primary) hypertension; G89.29 Other chronic pain; Z88.1 Allergy status to other antibiotic agents; Z79.899 Other long term (current) drug therapy
CPT/HCPCS: 36415; 71045; 80048; 83880; 84484; 85025; 93005; 99285

== ENCOUNTER 2025-08-26 14:50 | Outpatient (CLI) | payer BC | END 2025-08-26 23:59 | disposition home or self-care (01) | LOC: LAB 14:50 | PROVIDERS: ATTEND Student in an Organized Health Care Education/Training Program | DX: R00.2 Palpitations (principal); I15.2 Hypertension secondary to endocrine disorders | CPT/HCPCS: 36415; 82024; 83835; 84439; 84443; 84481 ==

== ENCOUNTER 2025-09-02 14:18 | Outpatient (CLI) | payer BC ==
[2025-09-02 14:54] LABS: CHOL/HDL RATIO 4.1 (0.00-4.99); LDL CHOLESTEROL 95 MG/DL (50-100)
== END 2025-09-02 23:59 | disposition home or self-care (01) ==
LOC: LAB 14:18
PROVIDERS: ATTEND Student in an Organized Health Care Education/Training Program
DX: Z00.00 Encounter for general adult medical examination without abnormal findings (principal)
CPT/HCPCS: 36415; 80061